=== PATIENT | female | born 1980 | race Two or more races ===

== ENCOUNTER 2018-06-01 12:45 | Observation (INO) | payer MEDICAID | END 2018-06-01 14:25 | disposition home or self-care (01) | DRG 566 | LOC: LDRP 12:45 → UNDOADMOB 12:58 | PROVIDERS: ADMIT Specialist; ATTEND Specialist | DX: O26.852 Spotting complicating pregnancy, second trimester (principal); O26.892 Other specified pregnancy related conditions, second trimester; O09.522 Supervision of elderly multigravida, second trimester; O46.92 Antepartum hemorrhage, unspecified, second trimester; R10.30 Lower abdominal pain, unspecified; Z3A.23 23 weeks gestation of pregnancy | CPT/HCPCS: 59025; 76815; 81002; G0378 ==

== ENCOUNTER 2018-08-08 09:50 | Observation (INO) | payer MEDICAID ==
[~2018-08-08] VITALS: Ht 165.1 cm; Wt 72.6 kg
[2018-08-08] MEDS ORDERED: PREN-145 OR (10:14)
== END 2018-08-08 11:30 | disposition home or self-care (01) | DRG 566 ==
LOC: LDRP 09:50
PROVIDERS: ADMIT Obstetrics & Gynecology; ATTEND Obstetrics & Gynecology
DX: O21.2 Late vomiting of pregnancy (principal); O99.283 Endocrine, nutritional and metabolic diseases complicating pregnancy, third trimester; E86.0 Dehydration; R60.9 Edema, unspecified; Z3A.32 32 weeks gestation of pregnancy
CPT/HCPCS: 59025; 81002; G0378; 96365

== ENCOUNTER 2018-09-05 14:19 | Observation (INO) | payer MEDICAID ==
[~2018-09-05 14:19] MED LIST: PREN-145 OR
== END 2018-09-05 16:30 | disposition home or self-care (01) | DRG 566 ==
LOC: LDRP 14:19
PROVIDERS: ADMIT Obstetrics & Gynecology; ATTEND Obstetrics & Gynecology
DX: O21.2 Late vomiting of pregnancy (principal); E86.0 Dehydration; O09.523 Supervision of elderly multigravida, third trimester; O99.283 Endocrine, nutritional and metabolic diseases complicating pregnancy, third trimester; O26.893 Other specified pregnancy related conditions, third trimester; R51 Headache; Z3A.36 36 weeks gestation of pregnancy
CPT/HCPCS: 59025; 81002; G0378